=== PATIENT | female | born 1970 | race Caucasian/White ===

== ENCOUNTER 2016-09-25 23:38 | Emergency (ER) | payer MEDICARE | END 2016-09-26 04:00 | disposition home or self-care (01) | LOC: ER 23:38 | DX: N39.0 Urinary tract infection, site not specified (principal); A59.00 Urogenital trichomoniasis, unspecified; E07.9 Disorder of thyroid, unspecified; E11.9 Type 2 diabetes mellitus without complications; Z90.49 Acquired absence of other specified parts of digestive tract; Z79.4 Long term (current) use of insulin; Z79.899 Other long term (current) drug therapy; Z88.8 Allergy status to other drugs, medicaments and biological substances | CPT/HCPCS: 36415; 96365; 96375; J0696 ==